=== PATIENT | male | born 1975 | race Caucasian/White ===

== ENCOUNTER 2025-03-30 19:55 | Inpatient (IN) | payer MEDICAID ==
[~2025-03-30] VITALS: Ht 185.4 cm; Wt 93.6 kg
--- NOTE | 2025-03-30 20:18 | Physician Documentation ---
History of Present Illness ~ Chief Complaint: Abdominal Pain Stated Complaint: ABD PAIN Time Seen by MD: 20:17 HPI Patient presents to the emergency room with one-week history of abdominal pain waxing and waning. Subjective fevers. Regular bowel movements. No dysuria. Positive nausea without vomiting. Medication Reconciliation Allergies: Coded Allergies: No Known Allergies (Unverified , 03/30/25) Review of Systems ROS All review of systems negative except as per HPI Physical Exam Vital Signs: Temperature: 97.6, Source: Temporal, Heart Rate: 90, Respiratory Rate: 15, BP: 117/77, Pulse Oximetry: 99, Weight: 93.600 Physical Exam General: Patient is awake, alert, oriented x4 in no acute distress and well appearing.~ Head: Normocephalic and atraumatic. Eyes: Conjunctival normal. EOMI. PERRL. ENT: Mucous membranes moist. Neck: Supple, trachea is midline. Chest: Clear to auscultation bilaterally without rales, rhonchi, or wheezes. There is no accessory muscle use or retractions. Cardiac: RRR without murmurs, gallops, or rubs. Abd: Soft, nondistended, nontender, with normoactive bowel sounds. No guarding, rebound, or rigidity. Progress Results/Orders Results/Orders Orders - MEMO GUARDADO MD Urinalysis, Cult If Indicated (03/30/25 20:15) Procalcitonin (03/30/25 20:15) Ct Abdomen Pelvis (03/30/25 20:28) Piperacillin/Tazo 3.375gm/50ml (Zosyn 3. (03/30/25 21:25) Page Hospitalist (03/30/25 21:24) Fill Out Med Reconciliation (03/30/25 21:24) Completed Orders - MEMO GUARDADO MD Cbc/Diff (03/30/25 20:15) BMP (03/30/25 20:15) Lipase (03/30/25 20:15) CMP (03/30/25 20:15) Ct Abdomen Pelvis (03/30/25 20:28) Vital Signs 03/30/25 03/30/25 20:12 20:32 Temp 97.6 Pulse 90 Resp 15 16 B/P (MAP) 117/77 Pulse Ox 99 Laboratory Tests Test 03/30/25 20:20 White Blood Count 16.1 H Red Blood Count 5.14 Hemoglobin 15.7 Hematocrit 46.1 Mean Corpuscular Volume 89.8 Mean Corpuscular Hemoglobin 30.6 Mean Corpuscular Hemoglobin Concent 34.1 Red Cell Distribution Width 13.6 Platelet Count 299 Mean Platelet Volume 7.8 Neutrophils (%) (Auto) 77.7 H Lymphocytes (%) (Auto) 12.2 L Monocytes (%) (Auto) 8.5 Eosinophils (%) (Auto) 1.3 Basophils (%) (Auto) 0.3 Neutrophils # (Auto) 12.5 H Lymphocytes # (Auto) 2.0 Monocytes # (Auto) 1.4 H Eosinophils # (Auto) 0.2 Basophils # (Auto) 0.0 CBC Comment Sodium Level 138 Potassium Level 4.4 Chloride Level 100 Carbon Dioxide Level 28.4 Anion Gap 10 Blood Urea Nitrogen 17 Creatinine 1.11 H Estimated GFR/1.73 m2 70 BUN/Creatinine Ratio 15.3 Glucose Level 109 H Calcium Level 9.2 Total Bilirubin 1.0 Aspartate Amino Transf (AST/SGOT) 25 Alanine Aminotransferase (ALT/SGPT) 42 Alkaline Phosphatase 64 Total Protein 7.8 Albumin 3.9 Globulin 3.9 Albumin/Globulin Ratio 1.0 L Lipase 28 Procalcitonin < 0.05 Chemistry Comments Medical Decision Making Findings Patient presented to the emergency room for evaluation of abdominal pain. Differentials include but are not limited to gastritis cholecystitis appendicitis diverticulitis kidney stone urinary tract infection therefore emergent labs and imaging indicated. Labs concerning for elevated white blood cell count and CT scan ordered which is consistent with diagnosis of appendicitis. IV antibiotics and IV fluids initiated. Surgery has been consulted and is aware of patient. Departure Admitted to Inpatient Unit: yes, to hospitalist Impression: Primary Impression: Appendicitis Referrals: NO PRIMARY CARE PROVIDER (PCP) Critical Care Note Total Time (mins): 40 Critical Care Note The very real possibility of a deterioration of this patient's condition required the highest level of my preparedness for sudden, emergent intervention. I provided critical care services, which included medication orders, frequent reevaluations of the patient's condition and response to treatment, ordering and reviewing test results, and discussing the case with various consultants. Excludes time spent performing separately billable procedures. The critical care time associated with the care of the patient was 40 minutes not counting procedures Signature Scribe Signature: No scribe Attestation: The note accurately reflects work and decisions made by me.Memo Guardado MD 03/30/25 21:31 MEMO GUARDADO MD Mar 30, 2025 20:18
[2025-03-30 20:26] LABS: MEAN PLATELET VOLUME 7.8 FL (7.4-10.4); RED CELL DISTRIBUTION WIDTH 13.6 % (11.5-14.5)
--- NOTE | 2025-03-30 20:56 | RADIOLOGY REPORT ---
EXAM: CT CT ABDOMEN PELVIS HISTORY: abd pain w fever TECHNIQUE: Volumetric multidetector CT images of the abdomen and pelvis were obtained after the admin istration of intravenous contrast. All CT scans at this facility use dose modulation, iterative recon struction, and/or weight based dosing when appropriate to reduce radiation dose to as low as reasonab ly achievable. COMPARISON: None FINDINGS: [LOWER CHEST]: The partially visualized lung bases are clear without a pleural effusion. [LIVER]: Normal hepatic size without suspicious focal lesion. [GALLBLADDER AND BILIARY TREE]: No cholelithiasis. [SPLEEN]: Unremarkable. [PANCREAS]: Unremarkable. [ADRENAL GLANDS]: Unremarkable [KIDNEYS]: No hydronephrosis. No nephroureterolithiasis. [BLADDER]: Unremarkable for the degree distention. [REPRODUCTIVE ORGANS]: Mild to moderate prostatomegaly. [BOWEL/MESENTERY]: Stomach is normal. No CT evidence of bowel obstruction. acute appendicitis with di lated proximal appendix measuring up to 11 mm in width. Pelvic location of the appendix. Surroundin g inflammatory stranding. No pericolonic fluid collection. [ASCITES]: Trace ascites in the right lower quadrant [LYMPHADENOPATHY]: Reactive ileocolic lymph nodes [VASCULATURE]: No aneurysmal dilatation. [ABDOMINAL WALL]: Unremarkable. [MUSCULOSKELETAL]: No acute fracture or aggressive focal osseous lesion. IMPRESSION: 1. Acute appendicitis with dilated proximal appendix measuring up to 11 mm in width. Pelvic location of the appendix. Surrounding inflammatory stranding. No pericolonic fluid collection.
[2025-03-30 20:58] LABS: CREATININE 1.11 MG/DL (0.60-1.10); TOTAL CARBON DIOXIDE 28.4 MMOL/L (24-32); eCRCL 91 ML/MIN; eGFR 70 ML/MIN
[2025-03-30] MEDS: normal saline 1000ml 1,000 ML IV ONE (21:45)
[2025-03-30] MEDS: piperacillin/tazo 3.375gm/50ml 50 ML IV ONE (21:45)
[2025-03-30] MEDS ORDERED: potassium Cl 20 mEq SR tablet PO PRN ×2 (21:50)
[2025-03-30] MEDS ORDERED: magnesium sulf-water 4G/100mL 100 ML IV PRN (21:50)
[2025-03-30] MEDS ORDERED: magnesium hydroxide 30ml (MOM) UD suspension PO PRN (21:50)
[2025-03-30] MEDS ORDERED: magnesium Cl slow-release 64mg tablet PO PRN (21:50)
[2025-03-30] MEDS ORDERED: ondansetron/PF 4mg/2ml inj IV PRN (21:50)
[2025-03-30] MEDS ORDERED: magnesium sulf-water 2g/50mL 50 ML IV PRN (21:50)
[2025-03-30] MEDS ORDERED: potassium Cl 40MEQ/1/2NS 520ml 520 ML IV PRN (21:50)
[2025-03-30] MEDS ORDERED: mag hydrox/Alum hydrox/simeth 30ml oral suspension PO PRN (21:50)
[2025-03-30] MEDS ORDERED: HYDROmorphone inj. 0.5 MG/0.5 ML DISP.SYRIN IV PRN (21:55)
[2025-03-30] MEDS ORDERED: HYDROmorphone/PF 0.2 MG/ML SYRINGE IV PRN (21:55)
[2025-03-30] MEDS ORDERED: NO HOME MEDS (22:02)
[2025-03-30] MEDS: normal saline 1000ml 1,000 ML IV SCH (23:06)
--- NOTE | 2025-03-30 23:13 | HISTORY AND PHYSICAL-Residence ---
History & Physical Providers to CC Resident Creating Document: JEREMIAH KEITH, RES ~ History of Present Illness Reason for Admit\Complaint: Abdominal pain History of Present Illness 49 years old male with no past medical history he is admitted to the ED with abdominal pain. patient reported that he has a abdominal pain from past few days which is waxing and waning . Since yesterday patient experiencing severe dull pain of 5/10 in intensity in the tiago umbilical area which is now radiated between Hypogastric region AND right lower quadrant which is not associated with food intake nor coughing. He has experienced intermittent fever over the past 2 day , with maxium recorded temperature of 100.5 at home. He also reports two episodes of non bloody food containing vomiting since yesterday with associated nausea. He denies any change in appetite, bowel and bladder movements and any burning urination. Allergies: Coded Allergies: No Known Allergies (Unverified , 03/30/25) Home Medications Home Medications Active Reported No Home Medications (Home Med List) Each Past Medical History Past Medical History No past medical history Past Surgical History Surgical History Comment No past surgical history Past Social History Social History Comment he is a non smoker, denies alcohol consumption, Not a drug user Lives in home with spouse Occupation is electrician yard No primary care physician Family history: Brother - unspecified cancer ROS ROS Constitutional: No weakness , no dizziness ,reported fever,no change in appetite/weight HEENT:No Itching in eyes, blurring of the vision, sore throat, epistaxis, tinnitus Cardiovascular: No chest pain/discomfort, palpitations, syncope. No pedal edema Respiratory: no sob ,NO cough, No hemoptysis Gastrointestinal: RLQ and Hypogastric abdominal pain , nausea, vomiting, no diarrhea, constipation, melena. Genitourinary: No frquency, urgency, incontinence, nocturia. No dysuria, hematuria Musculoskeletal: No arthralgia, myalgia Endocrine: No polydipsia, polyuria. No heat or cold intolerance Neurologic: No headache, vertigo. No weakness, numbness or tingling of extremities Psychiatric: No hallucinations/delusions, no anhedonia, no suicidal ideation Hematologic: No bleeding or bruises Exam Vitals: Vital Signs Date Time Temp Pulse Resp B/P (MAP) Pulse Ox O2 Delivery O2 Flow Rate FiO2 03/30/25 22:46 76 16 121/79 (93) 100 0 03/30/25 20:12 97.6 General: General: Awake and Alert, no acute distress. HEENT: Conjunctiva pink, Sclera clear, Mucus Membranes moist. Neck: Supple without masses and tenderness. Resp: Lungs clear to auscultation bilaterally., no wheezing, no ronchi Heart: Regular Rate and rhythm, normal S1 and S2 without murmur, rub or gallop. Abdomen: Tenderness on palpation in the hypogastric region, and no tenderness when left lower qudrant is palpated, Normal bowel sounds are heard, no guarding, rigidity, rebound tenderness Extremities: No cyanosis,clubbing or edema. Neurology : patient is alert ,oriented ,No gross focal and motor defects,normal tone and bulk Skin: Warm and Dry. Diagnostic Data Last Recorded Lab Results: 03/30/25201903/30/252019 Advance Care Planning Advanced Care plannin - 30 Minutes (Full code) Additional Plan 49 years old with no significant past medical history is currently evaluated for Abdominal pain Plan: Abdominal pain Acute appendicitis SIRS positive Patient presented to ED with Abdominal pain which is migratory from tiago umbilical to between hypogastric/RLQ Modified Alavardo Score : 8 Bp:121/79, Pulse: 90, Temparature: 97.6 Wbc: 16.1 with Neutrophil count 12.5 ESR: 19, CRP: 14.59, Procalcitonin <0.05 CT abdomen :Acute appendicitis with dilated proximal appendix measuring up to 11 mm in width. Pelvic location of the appendix. Surrounding inflammatory stranding. No pericolonic fluid collection Plan: Started IV NS 75 ml/hr (1000ml) Given one dose of Zosyn 3.375 g Once in the ER follow up with CBC, CMP, ESR Started on Zosyn IV 3.375 Q8h ED doctor consulted Surgeon and NPO from Midnight. Possible appendectomy tomorrow. Code Status: Full DVT Prophylaxis: SCDs Lines/Tubes:peripheral Nutrition: NPO PT: ordered Prognosis: Guarded Disposition: Patient diagnosed with Acute appendicitis. ED doctor discussed with Surgical team. Anticipate appendectomy tomorrow. Jeremiah Keith MD Internal Medicine Resident PGY-1 This note has been reviewed and signed by me. Cailin Gilbert MD Internal Medicine Resident, PGY-2 Patient seen and evaluated using HIPAA compliant audio visual aid. I agree with the assessment and plan by the resident. Critical Care time 60 mins Birgit Gaston MD Critical Care Date of Service: Mar 30, 2025 Billing Provider: BIRGIT GASTON MD, SATISH, RES Mar 30, 2025 23:13 CAILIN GILBERT, RES Mar 31, 2025 06:08 BIRGIT GASTON MD Apr 03, 2025 19:33
[2025-03-30 23:30] VITALS: RESP 20; O2SAT 97
[2025-03-31] VITALS (20 sets, daily range): BP systolic 103–131; BP diastolic 54–84; PULSE 54–98; RESP 7–20; TEMP 97.5–98.7; O2SAT 95–100
[2025-03-31 03:58] LABS: LEUKOCYTE ESTERASE ,URINE NEGATIVE (Neg); NITRITES, URINE NEGATIVE (Neg); OCCULT BLOOD,URINE SMALL (Neg)
[2025-03-31 04:03] LABS: UA COLLECTION TYPE CLN CATCH MIDSTREAM
[2025-03-31 04:14] LABS: MUCUS STRANDS FEW /LPF (Neg); SQUAMOUS EPITHELIAL CELL,UR FEW /LPF (FEW)
[2025-03-31 05:19] LABS: CREATININE,URINE RANDOM 162.7 MG/DL; GLUCOSE,URINE RANDOM 7.0 MG/DL; UA UREA RANDOM 1282.0 MG/DL
[2025-03-31 05:33] LABS: MEAN PLATELET VOLUME 8.2 FL (7.4-10.4); RED CELL DISTRIBUTION WIDTH 13.4 % (11.5-14.5)
[2025-03-31 06:09] LABS: CREATININE 0.84 MG/DL (0.60-1.10); TOTAL CARBON DIOXIDE 25.6 MMOL/L (24-32); eCRCL 120 ML/MIN; eGFR > 90 ML/MIN
[2025-03-31] MEDS: piperacillin/tazo 3.375gm/50ml 50 ML IV SCH (06:32)
[2025-03-31] MEDS ORDERED: BUPIVAcaine 0.5% inj/PF 30 ML ONE (06:48)
[2025-03-31] MEDS: docusate sod 100mg capsule PO SCH (08:00)
[2025-03-31] MEDS: K and/or MAG REPLACEMENT MC SCH (08:00)
[2025-03-31] MEDS ORDERED: midazolam 1 mg/ML 2ml injection ONE (08:13)
[2025-03-31] MEDS ORDERED: fentaNYL/PF 50MCG/1 ML 2ML syringe ONE (08:13)
[2025-03-31] MEDS ORDERED: rocuronium 10mg/ml inj IV ONE (08:16)
[2025-03-31] MEDS ORDERED: dexamethasone sod phosphate 4mg/ml inj. ONE (08:16)
[2025-03-31] MEDS ORDERED: LIDOcaine 2% (20mg/ml) 5ml vial ONE (08:16)
[2025-03-31] MEDS ORDERED: ondansetron/PF 4mg/2ml inj ONE (08:16)
[2025-03-31] MEDS ORDERED: propofol inj 20 ML IV ONE (08:16)
[2025-03-31] MEDS ORDERED: ringers solution, lacted 1,000 ML IV SCH (08:50)
[2025-03-31] MEDS ORDERED: meperidine/PF 25mg/ml syringe IV PRN ×3 (08:50)
[2025-03-31] MEDS ORDERED: enalaprilat 1.25mg/ml 2ml vial IV PRN (08:50)
[2025-03-31] MEDS ORDERED: labetalol 20mg/4ml (5mg/ml) syringe IV PRN (08:50)
--- NOTE | 2025-03-31 08:52 | PROGRESS NOTE ---
Progress Note ID Providers to CC ~ Progress Note Progress Note: discussed procedure including risks/benefits/alternatives LIZET HANNAH MD Mar 31, 2025 08:52
--- NOTE | 2025-03-31 09:18 | CONSULTATION ---
DATE OF CONSULTATION: 03/31/2025 DICTATING PHYSICIAN: Hay Lee MD REASON FOR CONSULTATION: Evaluation of abdominal pain. HISTORY OF PRESENT ILLNESS: A 49-year-old male who presented to the ER with complaints of abdominal discomfort. CAT scan revealed evidence of acute appendicitis. Surgical evaluation is now requested. On further questioning, the patient complains of lower abdominal discomfort. Some vomiting and some nausea. PAST MEDICAL HISTORY: Unremarkable. PAST SURGICAL HISTORY: Negative. HOME MEDICATIONS: None. ALLERGIES: None. SOCIAL HISTORY: Denies tobacco or alcohol use. REVIEW OF SYSTEMS: Unremarkable. PHYSICAL EXAMINATION: GENERAL: Well-nourished male in no distress. VITAL SIGNS: Unremarkable. HEART: Regular rate and rhythm. LUNGS: Clear to auscultation. ABDOMEN: He has lower abdominal discomfort. EXTREMITIES: Unremarkable. NEUROLOGIC: Nonfocal. LABORATORY DATA: Included WBC of 16, hematocrit of 46, platelet count 299. Chemistries, BUN and creatinine are 70 and 1.11. LFTs unremarkable. IMAGING STUDIES: CAT scan revealed evidence of acute appendicitis. IMPRESSION: Acute appendicitis. RECOMMENDATIONS: * Admit. * IV antibiotics. * Robotic appendectomy. Hay Lee MD TID: [id number] RECEIPT: [id number] JOSLYN/VULavelle
[2025-03-31] MEDS ORDERED: acetaminophen 1,000mg/100ml IV 100 ML IV ONE (09:53)
--- NOTE | 2025-03-31 09:56 | OPERATIVE REPORT ---
Operative Report Providers to CC ~ Date of Procedure: Mar 31, 2025 Pre-Operative Diagnosis: appendicitis Post-Operative Diagnosis SAME as PRE-Op Procedure Performed hanh grigsby Surgeon: barney limon Anesthesiologist: Jose Alfredo Carney Type of Anesthesia: General Findings: ruptured appendicitis Estimated Blood Loss: min Specimen Removed: LIZET Kevin MD Mar 31, 2025 09:56
[2025-03-31] MEDS: BUPIVAcaine 0.5% inj/PF 30 ml vial IJ ONE (09:59)
[2025-03-31] MEDS: ondansetron/PF 4mg/2ml inj IV PRN (10:15)
[2025-03-31] MEDS: morphine 4 MG/ML inj SYRINge IV PRN (10:15)
[2025-03-31] MEDS: HYDROcodone/acetaminophen 10/325mg tab PO PRN (11:17)
--- NOTE | 2025-03-31 15:31 | PROGRESS NOTE- Residence ---
Progress Note - Resident Providers to CC Resident Creating Document: BERNARDINO JAIN RES CC: ADIYTA SUAREZ MD ~ Antibiotic Timeout Antibiotic Ordered?: Yes Subjective Patient was examined and seen at at bedside, Reports abdominal pain at the incision site, denies,nausea,vomiting shortness of breath and chest pain. Patient does not passing flatus. He has not passed bowel movements so far. Objective Vital Signs Date Time Temp Pulse Resp B/P (MAP) Pulse Ox O2 Delivery O2 Flow Rate FiO2 03/31/25 14:00 69 104/54 (71) 96 Room Air 03/31/25 10:47 98.4 14 03/31/25 10:10 10.0 Result Diagram: 03/31/2542203/31/25422 General: awake, alert oriented to place, time, and person HEENT: No pallor present, no icterus, moist mucous membranes Neck: No masses and tenderness Resp: Unlabored. Lungs clear to auscultation bilaterally. Chest: Normal expansion. Cardiovascular: Regular Rate and rhythm, normal S1 and S2 without murmur, rub or gallop Abdomen: Soft and tender on periumblical area,GRICELDA drain ,no organomegaly, no guarding and rigidity, bowel sounds present Neuro: No focal weakness in the upper and lower limb muscles, power of the muscles 5/5 bilateral upper and lower extremities, normal reflexes bilaterally. Cranial nerves intact Extremities: No cyanosis,clubbing or edema Skin: Warm and Dry. No lesions Psych: Normal affect Plan Plan Acute complicated appendicitis S/P appendicectomy on 03/31/25 SIRS criteria, POA Leukocystosis with left Shift, improving ESR: 19, CRP: 14.59, Procalcitonin Normal Continue IV NS 75 ml/hr Follow up with a repeat ESR and C-reactive protein Continue Zosyn IV 3.375 Q8h (day 1/5) NPO currently, manage diet per Dr. Lee Prerenal JAKE probably secondary to renal tubular stasis, resolved Code Status: Full Code DVT Prophylaxis: SCDs Diet: NPO Disposition: Continue care in surgical floor, patient will require antibiotics for five days in view of complicated appendicitis. Bernardino Jain PGY INTERNAL MEDICINE RESIDENT, Case and notes discussed and reviewed by me, agree with the above assessment and plan Alma Rivera MD Internal Medicine, PGY 2 Date of Service: Mar 31, 2025 Billing Provider: ADITYA SUAREZ MD, SANJAY, RES Mar 31, 2025 15:31 ALAM RIVERA, RES Mar 31, 2025 18:16
[2025-04-01] VITALS (7 sets, daily range): BP systolic 99–109; BP diastolic 62–72; PULSE 59–71; RESP 16–18; TEMP 97.4–98.1; O2SAT 94–98
[2025-04-01 05:54] LABS: MEAN PLATELET VOLUME 8.1 FL (7.4-10.4); RED CELL DISTRIBUTION WIDTH 13.2 % (11.5-14.5)
[2025-04-01 06:03] LABS: CREATININE 0.94 MG/DL (0.60-1.10); TOTAL CARBON DIOXIDE 26.7 MMOL/L (24-32); eCRCL 107 ML/MIN; eGFR 85 ML/MIN
--- NOTE | 2025-04-01 08:08 | OPERATIVE REPORT ---
DATE OF SURGERY: 03/30/2025 DICTATING PHYSICIAN: Hay Lee MD PREOPERATIVE DIAGNOSIS: Appendicitis. POSTOPERATIVE DIAGNOSES: Ruptured appendicitis. PROCEDURE PERFORMED: Robotic appendectomy. SURGEON: Hay Lee MD NARROW GAUGE OPERATOR: None. ANESTHESIA: General/Dr. Carney. DRAINS: Prasanna x 1. INDICATIONS FOR OPERATION: A 49-year-old with abdominal pain, found to have acute appendicitis, taken to surgery for robotic appendectomy. INTRAOPERATIVE FINDINGS: Gangrenous appendicitis with subsequent rupture during the course of mobilization. DESCRIPTION OF PROCEDURE: The patient was placed supine on the operating table. After induction of general anesthesia and placement of endotracheal tube, the abdomen was prepped and draped. A subumbilical incision was then made and a 12 port placed using open technique and pneumoperitoneum was begun by insufflation of CO2. Additional ports were placed in the left ____. Robot was then brought to the field. Camera docked. Camera targeted. Ports were then docked and instruments placed. Abdomen was then explored. The patient was found to have gangrenous appendicitis. Appendix was mobilized out of the pelvis. The appendiceal cecal junction was identified, isolated. The mesenteric vessel was ligated. The appendiceal cecal junction was identified, isolated, ligated with Endo-INGA stapler and divided. When hemostasis was found to be adequate, robotic instruments were removed. Robotic undocked from the field. Appendix was placed in Endobag using laparoscope. Abdomen was irrigated with large of antibiotic-containing solution. A #19 Prasanna drain was then placed in the pelvis. Ports including the lap bag and appendix removed under laparoscopic vision with no evidence of active bleeding. Final port and camera withdrawn. Pneumoperitoneum was evacuated. Wounds were closed in layers. Skin was closed with subcuticular stitch. Dressings applied. The patient was transferred to recovery in stable condition. Hay Lee MD TID: [id number] RECEIPT: [id number] JOSLYN/CRISTO/YOLANDE
--- NOTE | 2025-04-01 13:48 | PROGRESS NOTE ---
Progress Note Dictate Providers to CC CC: ELEANOR HSIEH MD ~ Progress Note: Subsequent surgical care on a 49-year-old gentleman who is postoperative day 2, status post robotic assisted laparoscopic appendectomy for ruptured appendicitis Covering for Dr. Hay Lee over the weekend Leukocytosis resolved Still not passing any flatus Tolerating clear liquids Incisions clean, dry, and intact GRICELDA drain with serous output Continue clear liquids until passing flatus Continue IV antibiotics and total antibiotic course for 5-7 days Anticipate discharge home one day after return of bowel function Antibiotic Ordered?: Yes Objective Vitals Vital Signs Date Time Temp Pulse Resp B/P (MAP) Pulse Ox O2 Delivery O2 Flow Rate FiO2 04/01/25 13:02 18 04/01/25 11:04 97.6 60 99/62 (74) 98 04/01/25 08:00 Room Air 03/31/25 10:10 10.0 Lab Results: 04/01/25 0431 04/01/25 0431 ELEANOR HSIEH MD Apr 01, 2025 13:48
--- NOTE | 2025-04-01 15:30 | PROGRESS NOTE- Residence ---
Progress Note - Resident Providers to CC Resident Creating Document: BERNARDINO JAIN RES CC: ADITYA SUAREZ MD ~ Antibiotic Timeout Antibiotic Ordered?: Yes Subjective Patient was examined and seen at at bedside, reports pain in right lower rib and shoulder back side, he denies abdominal pain and chest pain.He has not passed stool and flatus since surgery. Objective Vital Signs Date Time Temp Pulse Resp B/P (MAP) Pulse Ox O2 Delivery O2 Flow Rate FiO2 04/01/25 13:54 16 04/01/25 11:04 97.6 60 99/62 (74) 98 04/01/25 08:00 Room Air 03/31/25 10:10 10.0 Result Diagram: 04/01/2543004/01/25430 General: awake, alert oriented to place, time, and person HEENT: No pallor present, no icterus, moist mucous membranes Neck: No masses and tenderness Resp: Unlabored. Lungs clear to auscultation bilaterally. Chest: Normal expansion. Cardiovascular: Regular Rate and rhythm, normal S1 and S2 without murmur, rub or gallop Abdomen: Soft and tender on periumblical area,GRICELDA drain in place- draining serous fluid ,no organomegaly, no guarding and rigidity, sluggish bowel sounds Neuro: No focal weakness in the upper and lower limb muscles, power of the muscles 5/5 bilateral upper and lower extremities, normal reflexes bilaterally. Cranial nerves intact Extremities: No cyanosis,clubbing or edema Musculoskeletal: No joint swelling, deformities, inflammations and back tenderness Skin: Warm and Dry. No lesions Psych: Normal affect Plan Plan This is 49 year old male presented with abdominal pain, CT was suggestive of appendicitis, admitted for surgery. Acute complicated appendicitis S/P appendicectomy on 03/30/25 SIRS criteria, POA Leukocystosis with left Shift,resolved ESR: 34, CRP: 9.49, Procalcitonin Normal Continue IV NS 75 ml/hr Follow up with a repeat ESR and C-reactive protein Continue Zosyn IV 3.375 Q8h (day 2/5) Clear Liquid Diet manage diet per Dr. Lee Prerenal JAKE probably secondary to renal tubular stasis, resolved Code Status: Full Code DVT Prophylaxis: SCDs Diet: Clear Liquid Diet Disposition: Continue care in surgical floor, patient will require antibiotics for five days in view of complicated appendicitis. Bernardino Jain PGY 1 INTERNAL MEDICINE RESIDENT, Addendum: Not passing gas yet. POD 2 - s/p robotic appendectomy - done on 03/30 for ruptured appendicitis. Day 2 of zosyn. Needs 5-7 day course of abx as per surgeon Date of Service: Apr 01, 2025 Billing Provider: ADITYA SUAREZ MD,BERNARDINO, RES Apr 01, 2025 15:30 HAILE ACEVES RES Apr 01, 2025 22:10
[2025-04-02 05:00] VITALS: BP 108/70; PULSE 65; RESP 16; TEMP 97.3; O2SAT 97
[2025-04-02 06:15] LABS: MEAN PLATELET VOLUME 8.4 FL (7.4-10.4); RED CELL DISTRIBUTION WIDTH 13.2 % (11.5-14.5)
[2025-04-02 06:59] LABS: CREATININE 1.05 MG/DL (0.60-1.10); TOTAL CARBON DIOXIDE 27.2 MMOL/L (24-32); eCRCL 96 ML/MIN; eGFR 75 ML/MIN
[2025-04-02 11:00] VITALS: BP 104/66; PULSE 68; RESP 14; TEMP 97.2; O2SAT 96
[2025-04-02] MEDS: magnesium hydroxide 30ml (MOM) UD suspension PO ONE (12:21)
--- NOTE | 2025-04-02 12:48 | PROGRESS NOTE ---
Progress Note Dictate Providers to CC CC: ELEANOR HSIEH MD ~ Progress Note: Subsequent surgical care on a 49-year-old gentleman who is postoperative day 3, status post robotic assisted laparoscopic appendectomy for ruptured appendicitis Covering for Dr. Hay Lee over the weekend No leukocytosis Passing flatus and has an appetite Tolerating clear liquids Incisions clean, dry, and intact GRICELDA drain with serous output Discontinue GRICELDA drain Regular diet as tolerated Milk of magnesia If tolerates diet, anticipate discharge home tomorrow with three day additional course of oral antibiotics Dr. Hay Lee returns tomorrow Antibiotic Ordered?: Yes Objective Vitals Vital Signs Date Time Temp Pulse Resp B/P (MAP) Pulse Ox O2 Delivery O2 Flow Rate FiO2 04/02/25 05:00 97.3 65 16 108/70 (83) 97 Room Air 04/01/25 22:00 0.0 Lab Results: 04/02/25 0434 04/02/25 0434 ELEANOR HSIEH MD Apr 02, 2025 12:48
[2025-04-02] MEDS ORDERED: LevETIRAcetam 500 MG in NORMAL SALINE 100ml IV.SOLN IV SCH (13:28)
--- NOTE | 2025-04-02 17:17 | PROGRESS NOTE- Residence ---
Progress Note - Resident Providers to CC Resident Creating Document: BERNARDINO JAIN RES CC: ADITYA SUAREZ MD ~ Antibiotic Timeout Antibiotic Ordered?: Yes Subjective Patient was examined and seen at at bedside, He says he is fine denies abdominal pain, chest pain , nausea and vomitting. He has passed the stool. Objective Vital Signs Date Time Temp Pulse Resp B/P (MAP) Pulse Ox O2 Delivery O2 Flow Rate FiO2 04/02/25 11:00 97.2 68 14 104/66 (79) 96 Room Air 04/01/25 22:00 0.0 Result Diagram: 04/02/2543304/02/25433 General: awake, alert oriented to place, time, and person HEENT: No pallor present, no icterus, moist mucous membranes Neck: No masses and tenderness Resp: Unlabored. Lungs clear to auscultation bilaterally. Chest: Normal expansion. Cardiovascular: Regular Rate and rhythm, normal S1 and S2 without murmur, rub or gallop Abdomen: Soft and non tender abodmen, Discontinued GRICELDA drain ,no organomegaly, no guarding and rigidity, bowel sounds present, Incisions clean, dry, and intact Neuro: No focal weakness in the upper and lower limb muscles, power of the muscles 5/5 bilateral upper and lower extremities, normal reflexes bilaterally. Cranial nerves intact Extremities: No cyanosis,clubbing or edema Musculoskeletal: No joint swelling, deformities, inflammations and back tenderness Skin: Warm and Dry. No lesions Psych: Normal affect Plan Plan This is 49 year old male presented with abdominal pain, CT was suggestive of appendicitis, admitted for surgery. Acute complicated appendicitis S/P appendicectomy on 03/30/25 SIRS criteria, POA Leukocystosis with left Shift,resolved ESR: 34, CRP: 9.49, Procalcitonin Normal Continue IV NS 75 ml/hr Follow up with a repeat ESR and C-reactive protein Continue Zosyn IV 3.375 Q8h (day 3/5) Regular diet as tolerated as per Dr. Smith Discontinued GRICELDA Drain. Prerenal JAKE probably secondary to renal tubular stasis, resolved Code Status: Full Code DVT Prophylaxis: SCDs Diet: Regular diet as tolerated Disposition: Continue care in surgical floor, patient will require antibiotics for five days in view of complicated appendicitis. Bernardino Jain PGY 1 INTERNAL MEDICINE RESIDENT Addendum: Passing gas. GRICELDA drain discontinued by the surgeon and also started diet. Tolerating liquid diet well. Advance diet as tolerated. Discharge in am with po antibiotics Date of Service: Apr 02, 2025 Billing Provider: ADITYA SUAREZ MD, SANJAY, JAMES Apr 02, 2025 17:17 HAILE ACEVES RES Apr 02, 2025 22:49
[2025-04-02 18:30] VITALS: BP 104/70; PULSE 74; RESP 16; RESP 17; TEMP 97.4; O2SAT 97; O2SAT 98
[2025-04-03 06:00] VITALS: BP 116/80; PULSE 75; RESP 16; TEMP 97.7; O2SAT 98
[2025-04-03 06:38] LABS: MEAN PLATELET VOLUME 7.7 FL (7.4-10.4); RED CELL DISTRIBUTION WIDTH 13.1 % (11.5-14.5)
[2025-04-03 07:00] LABS: CREATININE 0.83 MG/DL (0.60-1.10); TOTAL CARBON DIOXIDE 29.3 MMOL/L (24-32); eCRCL 122 ML/MIN; eGFR > 90 ML/MIN
[2025-04-03] MEDS ORDERED: AMOX-580 PO (10:13)
[2025-04-03] MEDS ORDERED: PANT-47 PO (10:13)
--- NOTE | 2025-04-03 11:42 | PROGRESS NOTE ---
Progress Note ID Providers to CC ~ Progress Note Progress Note: doing well/dc LIZET HANNAH MD Apr 03, 2025 11:42
--- NOTE | 2025-04-03 15:58 | DISCHARGE SUMMARY-Residence ---
Discharge Summary Providers to CC Resident Creating Document: HAILE ACEVES RES ~ Discharge Summary Admission Diagnosis: appendicitis Hospital Course DATE OF ADMISSION: 03/30/2025 DATE OF DISCHARGE: 04/03/2025 The 49-year-old male with no past medical history and not on any home medications presented to the ER with a chief concern of abdominal pain that started few days back. The pain initially started in the periumbilical area which then radiated to hypogastric region and 10 right lower quadrant. Had intermittent fever and started vomitings a day before his visit to the ER. Abdomen/pelvis CT showed acute appendicitis with a dilated proximal appendix measuring up to 11 mm in width. Sepsis ruled out. Surgeon-Dr. Lee was consulted who performed robotic appendectomy on 03/30/2025. Also received Zosyn 3.375 g IV q.8h. Today, he is able to tolerate regular diet. Had bowel movements yesterday and this morning. Denies any complaints or severe pain at the surgical site. Surgeon cleared him for discharge. GRICELDA drain discontinued yesterday. JAKE probably - pre renal - vasomotor nephropathy resolved. So, today he is discharged on p.o. Augmentin as per surgeon's recommendations. General: Alert and oriented x 4 HEENT: Normocephalic and atraumatic. Pupils equal round and reactive to light and accommodation. Extraocular movements intact. Oral and nasal mucosa moist Neck: Trachea is in midline. No masses or JVD Lungs: Bilateral normal breath sounds. No crackles, rhonchi or wheezes Heart: Regular rate and rhythm. S1-S2 normal. No rubs or murmurs Abdomen: Soft, nontender and nondistended. Bowel sounds present. Pallavi in place at the surgical site CAMP ASSISTANT: No gross sensory or motor abnormalities Extremities: No cyanosis, clubbing or edema Skin: Warm and dry. As above Discharge instructions: Please take Augmentin twice a day for five days. Follow up with the surgeon-Dr. Lee within a week after discharge. Encourage oral fluids. Check your LFTs within 3-5 days after discharge and discuss the result with your PCP. Haile Aceves MD Internal Medicine Resident, PGY 3 Discharge Diagnosis\Comment: Ruptured appendicitis-robotic appendectomy on 03/30/2025 Operations\Procedures: Robotic appendectomy Consultants: Dr. Brusett Complications: None Condition on DC: Stable New Medications: Amox Tr/Potassium Clavulanate 875/125 MG (Augmentin 875/125 MG) 875 Mg-125 Mg Tablet 1 TAB PO BID for 5 Days, #10 TAB Pantoprazole Sodium (PROTONIX tablet) 40 Mg Tablet.dr 40 MG PO DAILY for 30 Days, #30 TAB.SR Discontinued Medications: Home Med List (No Home Medications) Each Discharge Summary: As above *Problems/Diagnosis: (1) Appendicitis Status: Acute Total Time Spent on D/C: > 30 Minutes Date of Service: Apr 03, 2025 Billing Provider: ADITYA SUAREZ MD, MANOJNA RES Apr 03, 2025 15:58
[2025-04-03] MEDS ORDERED: amox tr/potassium clavulanate 875/125mg TAB PO SCH (17:30)
--- NOTE | 2025-04-04 10:52 | PATHOLOGY REPORT ---
[facility] [address] [place] [address] SURGICAL PATHOLOGY REPORT CaseNumber: [id number] Surgeon:Hay Lee M.D. CLINICAL INFORMATION CLINICAL INFORMATION: Not provided. DIAGNOSIS DIAGNOSIS: APPENDIX, ROBOTIC-ASSISTED LAPAROSCOPIC APPENDEC - ACUTE APPENDICITIS - NO DYSPLASIA OR MALIGNANCY MICROSCOPIC DESCRIPTION MICROSCOPIC DESCRIPTION: Performed. GROSS DESCRIPTION GROSS DESCRIPTION: Received in a container of formalin labeled with the patient's name, number, and " Appendix" is a perforated nonuniform caliber vermiform appendix which measures 7 cm long by up to 1 c m in diameter. The serosa is congested with areas of indurated fibrinopurulent exudate and 2 cm from the proximal mucosal resection margin there is a 0.2 cm area of perforation identified. There is appr oximately 1.5 cm of attached periappendiceal fat. Sectioning reveals a dilated lumen which contains b lood but no fecalith. Sections are submitted as follows: A1) Area of perforationA2) On Car Supervisor sections including the proximal mid and distal portion of the appendix The time at which the specimen was removed was 0935. The time at which the specimen was placed in [facility] was 0941. Electronically signed by: Fady Zafar M.D. 04/04/2025 10:16:00 AM
== END 2025-04-03 11:22 | disposition home or self-care (01) | DRG 233 ==
LOC: ER 19:57 → UNDOADMIN 21:55 → ED HOLD 21:55 → EDBEDREQ 22:29 → ED HOLD 23:30 → SUR 3N 23:30 → PACU 03-31 10:11 → SUR 3N 03-31 11:12
PROVIDERS: ADMIT Internal Medicine Pulmonary Disease; ATTEND Family Medicine
PROC: BW211ZZ Computerized Tomography (CT Scan) of Abdomen and Pelvis using Low Osmolar Contrast (ICD-10-PCS; 2025-03-30)
PROC: 8E0W4CZ Robotic Assisted Procedure of Trunk Region, Percutaneous Endoscopic Approach (ICD-10-PCS; 2025-03-31)
PROC: 0DTJ4ZZ Resection of Appendix, Percutaneous Endoscopic Approach (ICD-10-PCS; principal; 2025-03-31 08:37)
DX: K35.32 Acute appendicitis with perforation, localized peritonitis, and gangrene, without abscess (principal); N17.0 Acute kidney failure with tubular necrosis; Z79.899 Other long term (current) drug therapy
CPT/HCPCS: 36415; 74176; 80053; 81001; 82570; 82945; 82948; 83605; 83690; 83735; 84145; 84300; 84540; 85025; 85651; 86140; 87081; 96365; 99291; A4215; A4618; A6212; A6258; A6449; G0378; J0131; J0665; J1100; J2003; J2250; J2270; J2405; J2543; J2704; J2710; J3010; J3490; J7030; J7040; J7120